=== PATIENT | female | born 1965 | race Two or more races ===

== ENCOUNTER 2024-03-20 00:43 | Inpatient (IN) | payer OTHER ==
[~2024-03-20] VITALS: Ht 162.6 cm; Wt 68.1 kg
[2024-03-20] MEDS: SODIUM CHLORIDE 0.9% 1,000 ML IV ONE (01:30)
[2024-03-20 02:00] LABS: Basophils # (auto) 0.1 10 ^3/uL (0-0.2); Basophils % (auto) 0.5 % (0.0-2.0); Eosinophils # (auto) 0 10 ^3/uL (0-0.8); Eosinophils % (auto) 0.3 % (0.0-7.0); Hematocrit 44.1 % (36.0-46.0); Hemoglobin 14.2 g/dL (12.2-16.2); Lymphocytes # (auto) 2.6 10 ^3/uL (0.4-5.4); Lymphocytes % (auto) 18.5 % (10.0-50.0); Mean Corpuscular Hemoglobin 31.2 pg (28.0-32.0); Mean Corpuscular Hgb Conc. 32.3 g/dL (32.0-36.0); Mean Corpuscular Volume 96.7 fL (80.0-100.0); Monocytes # (auto) 0.7 10 ^3/uL (0-1.3); Monocytes % (auto) 4.9 % (0.0-12.0); Neutrophils # (auto) 10.8 10 ^3/uL (1.6-8.6); Neutrophils % (auto) 75.8 % (37.0-80.0); Platelet Count (auto) 411 10^3/uL (140-450); Red Blood Cells 4.56 10^6/uL (4.0-5.20); White Blood Cell 14.3 10^3/uL (4.4-10.8)
[2024-03-20 02:15] LABS: Alanine Aminotransferase 16 U/L (7-40); Alkaline Phosphatase 170 U/L (46-116); Anion Gap 25.00001 (5-15); BUN/Creatinine Ratio 12.5 (10.0-20.0); Blood Urea Nitrogen 26 mg/dL (9-23); Calcium 9.8 mg/dL (8.7-10.4); Chloride 91 mmol/L (98-107); Lipase 29 U/L (12-53); Magnesium 2.4 mg/dL (1.6-2.6); Potassium 4.5 mmol/L (3.5-5.1); Sodium 126 mmol/L (136-145)
[2024-03-20 02:16] LABS: Albumin 4.6 g/dL (3.2-4.8); Aspartate Aminotransferase 8 U/L (13-40); Bilirubin, Total 0.6 mg/dL (0.2-1.0); Total Protein 7.4 g/dL (5.7-8.2)
[2024-03-20 02:34] LABS: INR 0.92 (0.9-1.15); Partial Thromboplastin Time 26.3 SEC (24.5-34.5); Prothrombin Time 9.8 sec (9.3-11.8)
[2024-03-20 02:35] LABS: Carbon Dioxide < 10 mmol/L (20-30); Glucose 689 mg/dL (74-106)
[2024-03-20] MEDS ORDERED: DEXTROSE (50%) 50ML SYRG IV PRN ×2 (02:45→12:15)
[2024-03-20] MEDS: SODIUM CHLORIDE 0.9% 1,000 ML IV SCH ×3 (02:45→08:48)
[2024-03-20 03:02] LABS: Base Excess -22.4 mmol/L (-2.0-2.0)
[2024-03-20] MEDS: SODIUM CHLORIDE 0.9% 2,000 ML IV ONE ×2 (03:06→03:07)
[2024-03-20] MEDS: ACCU-CHEK COMFORT CURVE STRIP VI SCH ×2 (03:07→13:53)
[2024-03-20] MEDS: INSULIN LANTUS (GLARGINE) 1 /0.01ml (100units/ml) SC ONE (03:08)
[2024-03-20] MEDS: InsuLIN REG 1unit/0.01ml Soln (100units/ml) IV ONE (03:09)
[2024-03-20] MEDS: INSULIN DRIP 100 UNIT/100ML 100 ML IV SCH (03:14)
[2024-03-20 03:38] LABS: Chloride 91 mmol/L (98-107); Potassium 4.8 mmol/L (3.5-5.1); Sodium 127 mmol/L (136-145)
[2024-03-20 03:39] LABS: Anion Gap 26.00001 (5-15); Calcium 9.9 mg/dL (8.7-10.4)
[2024-03-20 03:44] LABS: BUN/Creatinine Ratio 15.8 (10.0-20.0); Blood Urea Nitrogen 33 mg/dL (9-23)
[2024-03-20 03:45] LABS: Magnesium 2.4 mg/dL (1.6-2.6)
[2024-03-20 03:46] LABS: Phosphorus 7.1 mg/dL (2.4-5.1)
[2024-03-20] MEDS: SODIUM BICARB 8.4% 50Meq/50ml SYR Vial IV ONE ×4 (04:01→04:02)
[2024-03-20 04:18] LABS: Carbon Dioxide < 10 mmol/L (20-30); Glucose 682 mg/dL (74-106)
[2024-03-20] MEDS ORDERED: NITROGLYCERIN 0.4 MG SL TAB SL PRN (04:45)
[2024-03-20] MEDS ORDERED: ONDANSETRON HCL 4 MG/2 ML VIAL IV PRN (04:45)
[2024-03-20] MEDS ORDERED: MORPHINE SULFATE INJ 2 MG/ml SYRG IV PRN (04:45)
[2024-03-20] MEDS: ONDANSETRON HCL 4 MG/2 ML VIAL IV ONE (05:31)
[2024-03-20] MEDS: KETOROLAC TROMETH 30 MG/ML 1ML VIAL IV ONE (05:31)
[2024-03-20 08:27] LABS: Base Excess -5.8 mmol/L (-2.0-2.0)
[2024-03-20 08:36] LABS: Alanine Aminotransferase 14 U/L (7-40); Albumin 3.7 g/dL (3.2-4.8); Alkaline Phosphatase 124 U/L (46-116); Anion Gap 13 (5-15); Aspartate Aminotransferase 9 U/L (13-40); BUN/Creatinine Ratio 17.5 (10.0-20.0); Bilirubin, Total 0.4 mg/dL (0.2-1.0); Blood Urea Nitrogen 20 mg/dL (9-23); Calcium 8.3 mg/dL (8.7-10.4); Carbon Dioxide 20 mmol/L (20-30); Chloride 110 mmol/L (98-107); Glucose 106 mg/dL (74-106); Potassium 3.4 mmol/L (3.5-5.1); Sodium 143 mmol/L (136-145); Total Protein 5.9 g/dL (5.7-8.2)
[2024-03-20 13:28] LABS: Chloride 110 mmol/L (98-107); Potassium 3.6 mmol/L (3.5-5.1); Sodium 143 mmol/L (136-145)
[2024-03-20 13:29] LABS: Anion Gap 12 (5-15); Calcium 8.1 mg/dL (8.7-10.4); Carbon Dioxide 21 mmol/L (20-30)
[2024-03-20 13:34] LABS: BUN/Creatinine Ratio 14.5 (10.0-20.0); Blood Urea Nitrogen 17 mg/dL (9-23); Glucose 297 mg/dL (74-106)
[2024-03-20] MEDS: InsuLIN REG 1unit/0.01ml Soln (100units/ml) SC SCH (13:50)
[2024-03-20] MEDS ORDERED: InsuLIN REG 1unit/0.01ml Soln (100units/ml) SC SCH (16:00)
[2024-03-20 16:20] LABS: Urine Bacteria None Seen /hpf (None Seen)
[2024-03-20 16:49] LABS: Urine Blood Negative /uL (Negative); Urine Clarity Clear (Clear); Urine Color Colorless (Yellow); Urine Protein, UAD Negative (Negative); Urine Specific Gravity 1.022 (1.001-1.035); Urine Urobilinogen Normal (Negative); Urine WBC 2 /hpf (0 - 5); Urine pH 6.5 (5.0-9.0)
[2024-03-20 17:00] VITALS: TEMP 98.2
[2024-03-20 17:03] LABS: Amphetamine Screen, Urine Neg (NEGATIVE); Barbiturate Scree,Urine Neg (NEGATIVE); Benzodiazephine Screen, Urine Neg (NEGATIVE); Cannabinoid Screen, Urine Neg (NEGATIVE); Cocaine Screen, Urine Neg (NEGATIVE); Opiate Scree,Urine Neg (NEGATIVE); Phencyclidine Screen, Urine Neg (NEGATIVE)
[2024-03-20 18:00] VITALS: BP 111/53; PULSE 96; RESP 12; O2SAT 95
[2024-03-21] MEDS ORDERED: INSULIN LANTUS (GLARGINE) 1 /0.01ml (100units/ml) SC SCH (10:00)
== END 2024-03-20 18:37 | disposition home or self-care (01) | DRG 422 ==
LOC: ER 00:43 → OVERFLOW 04:34
PROVIDERS: ADMIT Internal Medicine Pulmonary Disease; ATTEND Internal Medicine Pulmonary Disease
DX: E86.0 Dehydration (principal); N17.0 Acute kidney failure with tubular necrosis; E11.10 Type 2 diabetes mellitus with ketoacidosis without coma; E87.3 Alkalosis; Z91.199 Patient's noncompliance with other medical treatment and regimen due to unspecified reason; F17.210 Nicotine dependence, cigarettes, uncomplicated; Z79.4 Long term (current) use of insulin
CPT/HCPCS: 36415; 36600; 71045; 74176; 80048; 80053; 80307; 81001; 82010; 82805; 82962; 83690; 83735; 83880; 83930; 84100; 84484; 85025; 85610; 85730; 93005; 96361; 96365; 96372; 96375; 99291; G0378; J1815